=== PATIENT | female | born 1955 | race Caucasian/White ===

== ENCOUNTER 2018-12-21 15:45 | Inpatient (IN) | payer MEDICARE ==
[~2018-12-21] VITALS: Ht 165.1 cm; Wt 81.2 kg
[~2018-12-21 15:45] MED LIST: ACYCLOVIR 400400 MG PO; ALPHA LIPOIC A100 MG PO; B12INJ SUBQ; BIOTIN300 MCG PO; BROMELAIN MC; CALCIUM PO; CARAFATE 1 GM TA1 G1 PO; CIPRO500 MG PO; D3 DOTS2000 UNIT PO; ENZYMATIC DIGE1 EACH PO; EPA DHA PO; ESTER-C 1,0001 EACH PO; ESTRACE1 MG PO; FISH OIL300 MG PO; FLAGYL500 M1 PO; FLUOCINOLO0.01 %/15 TOP; GROWTH HORMONE PO; HYDROCODONE-AP1 EAC6 PO; IMURAN 50MG TAB50 M1 PO; LEVAQUIN 750 M750 MG PO; LEVOTHYROXIN0.025 MG PO; LOPERAMIDE 2 MG2 M1 PO; MAGNES PO; MAGOX 400400 MG PO; MINIVELLE1 EAC1 TD; MIRALAX255 GM PO; MULTIVITAMINS PO; OMEGA-31000 M1 PO; PERCOCET 5-3251 EACH PO; PREMARIN1.25 MG PO; PROBIOTIC1 EAC1 PO; PROBIOTIC1 EACH PO; PULMICORT0.5 MG/22 INH; SAVELLA50 MG PO; TUMS PO; VITAMIN E100 UNI2 PO; ZANAFLEX2 M1 PO; ZOFRAN ODT4 MG PO; [UNRECOGNIZED DRUG - OTHER] PO
[2018-12-21 15:48] VITALS: BP 120/70
[2018-12-21] MEDS ORDERED: SYNTHROID50 MCG PO (15:49)
[2018-12-21 16:08] LABS: HEMATOCRIT 45.8 % (37.0-47.0); HEMOGLOBIN 15.6 gm/dL (12.0-15.0); MCH 32.8 pg (26.0-34.0); MCHC 34.1 g/dL (28.0-37.0); MCV 96.2 fL (80.0-100.0); MPV 8.5 fl. (7.2-11.1); NUCLEATED RBCS 0 /100WBC; PLATELET COUNT* 318 thou/uL (150-400); RBC 4.77 mil/uL (4.20-5.00); RDW-CV 13.1 % (10.5-14.5); WBC 15.3 thou/uL (4.0-11.0)
[2018-12-21 16:13] LABS: CALCIUM 9.5 mg/dL (8.5-10.1); CREATININE 0.9 mg/dL (0.6-1.3)
[2018-12-21 16:18] LABS: ALBUMIN 4.4 g/dL (3.4-5.0); TOTAL BILIRUBIN 0.4 mg/dL (<0.1-1.0); TOTAL PROTEIN 8.1 g/dL (6.4-8.2)
[2018-12-21 16:36] LABS: ABSOLUTE LYMPHOCYTES 1.4 thou/uL (0.8-5.3); ABSOLUTE MONOCYTES 0.3 thou/uL (0.0-1.2); ABSOLUTE NEUTROPHILS 13.6 thou/uL (1.6-8.1)
[2018-12-21 16:37] LABS: PLATELET ESTIMATE ADEQUATE
[2018-12-21 16:38] LABS: CLUMPED PLTS RARE; LARGE PLATELETS RARE
[2018-12-21 20:36] LABS: URINE BILIRUBIN NEGATIVE (Negative); URINE BLOOD TRACE (Negative); URINE CLARITY CLEAR; URINE COLOR YELLOW; URINE GLUCOSE-RANDOM NEGATIVE (Negative); URINE KETONES TRACE (Negative); URINE LEUKOCYTES NEGATIVE (Negative); URINE NITRITE NEGATIVE (Negative); URINE PROTEIN NEGATIVE (Negative); URINE UROBILINOGEN 0.2 E.U./dl (0.2-1.0)
[2018-12-21 23:10] VITALS: BP 111/45
[2018-12-21 23:36] VITALS: BP 105/57
[2018-12-22] MEDS ORDERED: PROBIOTIC1 EAC2 PO (03:48)
[2018-12-22] MEDS ORDERED: [UNRECOGNIZED DRUG - OTHER] PO (03:51)
[2018-12-22] MEDS ORDERED: PANCREATIC ENZYMES PO (03:52)
[2018-12-22] MEDS ORDERED: [UNRECOGNIZED DRUG - OTHER] PO (03:52)
[2018-12-22] MEDS ORDERED: CALCIUM LACTAT100 MG PO (03:54)
[2018-12-22] MEDS ORDERED: VITAMINC500 PO (03:55)
[2018-12-22] MEDS ORDERED: VITAMIN D5000 UNIT PO (03:56)
[2018-12-22] MEDS ORDERED: CO Q-10100 MG PO (03:57)
[2018-12-22] MEDS ORDERED: B-122500 MCG SUBLING (03:58)
[2018-12-22] MEDS ORDERED: ROBAXIN 750 MG750 M1 PO (04:01)
[2018-12-22] MEDS ORDERED: VITAMIN A8000 UNI1 PO (04:02)
[2018-12-22] MEDS ORDERED: MAGNESIUM L-LAC84 MG PO (04:03)
[2018-12-22] MEDS ORDERED: [UNRECOGNIZED DRUG - OTHER] PO (04:05)
[2018-12-22] MEDS ORDERED: ESTRADIOL1 EAC4 TOP (04:05)
[2018-12-22 04:07] LABS: HEMATOCRIT 38.6 % (37.0-47.0); MCH 32.4 pg (26.0-34.0); MCHC 33.7 g/dL (28.0-37.0); MCV 96.1 fL (80.0-100.0); MPV 8.4 fl. (7.2-11.1); RBC 4.02 mil/uL (4.20-5.00); RDW-CV 13.1 % (10.5-14.5); WBC 8.1 thou/uL (4.0-11.0)
[2018-12-22 04:35] LABS: CALCIUM 7.6 mg/dL (8.5-10.1); CREATININE 0.8 mg/dL (0.6-1.3); MAGNESIUM 1.9 mg/dL (1.8-2.4); POTASSIUM 3.8 mmol/L (3.5-5.1); TOTAL BILIRUBIN 0.6 mg/dL (<0.1-1.0); TOTAL PROTEIN 5.8 g/dL (6.4-8.2)
--- NOTE | 2018-12-22 05:08 | NUR ---
REPORT RECIEVED FROM ER. PT ADMITTED TO ROOM 304. PT ORIENTED TO , FALL AGREEMENT GONE OVER AND SIGNED, PT STATED UNDERSTANDING. ADMISSION DOCUMENTED. IV PATENT, MEDS GIVEN PER E-MAR. PAIN MEDS GIVEN PER E-MAR WITH RELIEF. PT STATES THAT SHE HAD A BOWEL OBSTRUCTION IN OCTOBER THIS YEAR AND WAS SEEN AT THE [facility] IN [place], [place] FOR IT AND THEY TREATED HER WITH CIPRO. PT STATES THAT SHE SEENS GI, RETAIL STORE MANAGER, NEUROLOGIST AND OUTFITTER CABIN-ONCOLOGIST ALL AT [place]. PT STATES THAT AT HOME SHE WAS TAKING OXY AND HYCOSAMINE ALONG WITH USING A HEATING PAD AT HOME WITH SOME RELIEF. WILL CONTINUE WITH PLAN OF CARE.
--- NOTE | 2018-12-22 14:31 | NUR ---
PT.SLEEPING. AT BEDSIDE. SPOKE WITH ,ANILA. HE SAID PT.IS INDEPENDENT AT HOME. NO USE OF DME. NO HX OF HOME HEALTH. SHE WAS SEEN AT [facility] IN OCTOBER. ADVISED HIM WE HAVE REQUESTED RECORDS. HE DID NOT FEEL WOULD HAVE ANY DISCHARGE NEEDS.
[2018-12-22 16:19] VITALS: BP 94/50
--- NOTE | 2018-12-22 16:43 | NUR ---
ASSESSMENT COMPLETE. PT ALERT AND ORIENTED X4. PT GIVEN PRN PAIN MEDICATION ONCE DURING THE DAY. IV FLUIDS INFUSING. IV ABX GIVEN SCHEDULED. PT IS UP STANDBY ASSIST. PT IS ON ROOM AIRM, VSS. PT IS RESTING AND HAS NO OTHER CONCERNS AT THIS TIME. SEE ASSESSMENT AND VITALS FOR OTHER DETAILS. CALL LIGHT WITHIN REACH, WILL CONTINUE PLAN OF CARE
[2018-12-22 19:45] VITALS: BP 102/48
[2018-12-23 04:43] LABS: HEMATOCRIT 37.7 % (37.0-47.0); HEMOGLOBIN 12.8 gm/dL (12.0-15.0); MCH 32.8 pg (26.0-34.0); MCHC 33.9 g/dL (28.0-37.0); MCV 96.6 fL (80.0-100.0); MPV 8.3 fl. (7.2-11.1); RBC 3.9 mil/uL (4.20-5.00); RDW-CV 13.2 % (10.5-14.5); WBC 5.5 thou/uL (4.0-11.0)
[2018-12-23 05:12] LABS: CALCIUM 8.3 mg/dL (8.5-10.1); CREATININE 0.9 mg/dL (0.6-1.3); MAGNESIUM 2.1 mg/dL (1.8-2.4); POTASSIUM 3.7 mmol/L (3.5-5.1); TOTAL BILIRUBIN 0.5 mg/dL (<0.1-1.0); TOTAL PROTEIN 5.8 g/dL (6.4-8.2)
--- NOTE | 2018-12-23 05:29 | NUR ---
PT SLEPT MOST OF SHIFT. ASSESSMENT DOCUMENTED. MEDS GIVEN PER E-MAR. IV PATENT, FLUIDS INFUSING. PAIN MEDS GIVEN PER E-MAR WITH RELIEF. PT UP SBA TO BATHROOM. SCD'S WORN MOST OF SHIFT. WILL CONTINUE WITH PLAN OF CARE.
[2018-12-23 07:53] VITALS: BP 102/52
[2018-12-23] MEDS ORDERED: CIPRO500 MG PO (11:11)
[2018-12-23] MEDS ORDERED: BENTYL 10 MG CA10 M1 PO (11:11)
[2018-12-23] MEDS ORDERED: ZOFRAN ODT4 MG DISSOLVE (11:11)
[2018-12-23] MEDS ORDERED: FLAGYL500 M1 PO (11:11)
[2018-12-23 11:40] VITALS: BP 102/52
[2018-12-23 13:39] VITALS: BP 102/52
--- NOTE | 2018-12-23 13:40 | NUR ---
ASSESSMENT COMPLETE. PT DC HOME WITH PRESCRIPTIONS GIVEN. PT VERBALIZES UNDERSTANDING. PT WILL FOLLOW UP WITH GI. PT LEFT WITH , ALL BELONGINGS SENT. SEE ASSESSMENT AND VITALS FOR OTHER DETAILS. CALL LIGHT WITHIN REACH, WILL CONTINUE PLAN OF CARE
--- NOTE | 2018-12-26 12:32 | CON ---
[address] [address] CONSULTATION Name: DOMINGUEZ ALVA Room: [address] M.R.#: [id number] Admission: 12/21/18 Attend Phys: Tiffany White MD Discharge: 12/23/18 Date of : 59 Report #: [id number] THIS REPORT FOR: //name// CC: John White DICTATED BY: Martha Willoughby [facility] DATE OF SERVICE: 12/22/2018 Please note at the time of this dictation, the patient was seen and physically examined by myself. REASON FOR CONSULTATION: Enteritis versus small-bowel obstruction. HISTORY OF PRESENT ILLNESS: This 63-year-old female presented to the Emergency Room with chief complaints of worsening abdominal pain and nausea. She states the pain started the day of admission around 01:00. She states she was having nausea, vomiting and diarrhea over the last several days prior to the onset of the abdominal pain. She reports that her symptoms have gradually improved and she woke up that morning feeling better and then, the pain started about 01:00 p.m. The patient was recently seen at the [facility] at the end of October approximately six weeks ago, underwent labs, EGD and colonoscopy at that time, which we will obtain. She says nothing significant was found. She was treated for SIBO and given Cipro for one week. She states during that time, she felt really well. Also, she follows Dr. Coto who is the chief of the celiac clinic up there and her levels were all within normal range and that she is following and her diet and is very compliant with her multiple food allergies and intolerances. ALLERGIES: INCLUDE PENICILLIN, CEPHALOSPORIN, SULFA, APPLE, LATEX, LACTOSE, GLUTEN, CODEINE, ASPIRIN, MORPHINE, KIWI, BANANA AND AVOCADO. MEDICATIONS: From home include levothyroxine, multivitamin, B12, alpha lipoic acid, growth hormone, bromelain, Biotin, vitamin E, estradiol, omega 3, calcium, magnesium oxide, digestive enzymes, lactobacillus, Carafate and pain medicine p.r.n. PAST MEDICAL HISTORY: Significant for celiac disease, hypothyroid, hypoglycemia, low blood pressure. PAST SURGICAL HISTORY: Negative. FAMILY HISTORY: Negative for [place] [address] CONSULTATION Name: DOMINGUEZ ALVA Room: [address]#: [id number] Admission: 12/21/18 Attend Phys: Tiffany White MD Discharge: 12/23/18 Date of : 59 Report #: [id number] SOCIAL HISTORY: Alcohol on special occasions. Denies any tobacco or illegal drug use. REVIEW OF SYSTEMS: Twelve-point review of systems is essentially negative except what is mentioned in the HPI. PHYSICAL EXAMINATION: VITAL SIGNS: Temperature 36.9, pulse 76, respirations 16, blood pressure 105/57. HEART: Regular rate and rhythm. LUNGS: Clear. ABDOMEN: Soft, positive bowel sounds in all four quadrants with epigastric tenderness noted to palpation, but also some generalized throughout, but worsening in the epigastric area. LABORATORY DATA: Hemoglobin is 13; white count on admission was 15.6, she is down to 8.1; platelets 285. GFR is 73. TSH is 8.7, total bilirubin 0.6. Alkaline phosphatase was 135, down to 83. ALT was 115, down to 74 and AST was 98, down to 36. CT of the abdomen and pelvis showed fluid throughout the small bowel with increased enhancement in the small bowel fisher without any obvious wall thickening or perienteric fat stranding, fluid noted within the colon, likely representing some mild enteritis, previous hysterectomy, cholecystectomy, prominent right external iliac lymph enlarged since the last exam. IMPRESSION: 1. Abdominal pain. 2. Loose stools. 3. Nausea and vomiting, resolved. 4. Leukocytosis, resolved. 5. History of recurrent small bowel bacterial overgrowth. 6. History of celiac disease followed at the [facility]. PLAN: 1. We will obtain her records from [facility] for our review with her recent visit EGD, colon, labs and progress notes. 2. We will add Bentyl 10 mg 1-2 tablets a.c. and at bedtime. 3. We will consider treatment for reoccurring SIBO after records have been reviewed. Thank you for allowing us to participate in this patient's care. Please do not hesitate to call with any questions in regard to this consult. <ELECTRONICALLY SIGNED> By: John Olivares DO 12/26/18 1232 [id number] Olivares DO /nt
== END 2018-12-23 13:10 | disposition home or self-care (01) | DRG 373 ==
LOC: M.ERS 15:45 → M.3W 17:21 → M.TBA-ER 17:21 → M.3W 23:22
PROVIDERS: Nurse Practitioner Family; ADMIT Internal Medicine
DX: A04.9 Bacterial intestinal infection, unspecified (principal); K90.0 Celiac disease; E03.9 Hypothyroidism, unspecified; D72.829 Elevated white blood cell count, unspecified; E04.1 Nontoxic single thyroid nodule; Z88.0 Allergy status to penicillin; Z88.2 Allergy status to sulfonamides; Z88.8 Allergy status to other drugs, medicaments and biological substances; Z88.6 Allergy status to analgesic agent; Z91.02 Food additives allergy status; Z91.040 Latex allergy status; Z91.011 Allergy to milk products; Z79.899 Other long term (current) drug therapy

== ENCOUNTER 2019-01-09 15:41 | Emergency (ER) | payer MEDICARE ==
[~2019-01-09] VITALS: Ht 165.1 cm; Wt 77.1 kg
[~2019-01-09 15:41] MED LIST changes: +B-122500 MCG SUBLING; +BENTYL 10 MG CA10 M1 PO; +CALCIUM LACTAT100 MG PO; +CO Q-10100 MG PO; +ESTRADIOL1 EAC4 TOP; +MAGNESIUM L-LAC84 MG PO; +PANCREATIC ENZYMES PO; +PROBIOTIC1 EAC2 PO; +ROBAXIN 750 MG750 M1 PO; +SYNTHROID50 MCG PO; +VITAMIN A8000 UNI1 PO; +VITAMIN D5000 UNIT PO; +VITAMINC500 PO; +ZOFRAN ODT4 MG DISSOLVE; +[UNRECOGNIZED DRUG - OTHER] PO; +[UNRECOGNIZED DRUG - OTHER] PO; +[UNRECOGNIZED DRUG - OTHER] PO
[2019-01-09 16:39] LABS: HEMATOCRIT 42.8 % (37.0-47.0); HEMOGLOBIN 14.4 gm/dL (12.0-15.0); MCH 32.4 pg (26.0-34.0); MCHC 33.7 g/dL (28.0-37.0); MCV 96.2 fL (80.0-100.0); MPV 8.4 fl. (7.2-11.1); NUCLEATED RBCS 0 /100WBC; PLATELET COUNT* 268 thou/uL (150-400); RBC 4.45 mil/uL (4.20-5.00); RDW-CV 13.1 % (10.5-14.5); WBC 6.5 thou/uL (4.0-11.0)
[2019-01-09 16:43] LABS: ANION GAP 10 mmol/L (7-16); BUN 15 mg/dL (7-18); CALCIUM 8.3 mg/dL (8.5-10.1); CHLORIDE 103 mmol/L (98-107); CO2 23 mmol/L (21-32); CREATININE 0.7 mg/dL (0.6-1.3); GLUCOSE 105 mg/dL (70-99); POTASSIUM 3.8 mmol/L (3.5-5.1); SODIUM 136 mmol/L (136-145)
[2019-01-09 16:53] LABS: ALBUMIN 3.4 g/dL (3.4-5.0); ALKALINE PHOSPHATASE 96 U/L (46-116); LIPASE 81 U/L (73-393); SGOT 108 U/L (15-37); SGPT 98 U/L (30-65); TOTAL BILIRUBIN 0.7 mg/dL (<0.1-1.0); TOTAL PROTEIN 6.6 g/dL (6.4-8.2); TROPONIN-I LEVEL <0.06 ng/mL (<0.06)
[2019-01-09 17:13] LABS: ABSOLUTE LYMPHOCYTES 0.7 thou/uL (0.8-5.3); ABSOLUTE MONOCYTES 0.2 thou/uL (0.0-1.2); ABSOLUTE NEUTROPHILS 5.7 thou/uL (1.6-8.1); PLATELET ESTIMATE ADEQUATE
[2019-01-09 17:20] LABS: URINE BILIRUBIN NEGATIVE (Negative); URINE BLOOD TRACE (Negative); URINE CLARITY CLEAR; URINE COLOR YELLOW; URINE GLUCOSE-RANDOM NEGATIVE (Negative); URINE KETONES NEGATIVE (Negative); URINE LEUKOCYTES-REFLEX NEGATIVE (Negative); URINE NITRITE-REFLEX NEGATIVE (Negative); URINE PROTEIN NEGATIVE (Negative); URINE UROBILINOGEN 0.2 E.U./dl (0.2-1.0)
[2019-01-09] MEDS ORDERED: PHENERGAN 25 MG25 M1 PO (18:57)
[2019-01-09] MEDS ORDERED: PROMS25 WY RECTAL (18:57)
[2019-01-09 19:29] VITALS: BP 121/82
--- NOTE | 2019-01-11 13:30 | EKG ---
[place] [address] ELECTROCARDIOGRAM REPORT Name: DOMINGUEZ ALVA [facility] [id number] Admission: 01/09/19 Attend Phys: Discharge: 01/09/19 Date of : 59 Report #: [id number] THIS REPORT FOR: //name// [facility] ED Test Date: 2019-01-09 Test Time: 16:17:00 Pat Name: DOMINGUEZ ALVA Department: Room: Gender: F Master Automotive Technician: Thomas SAXENA : 1955 Requested By: Rufina Redmond Order Number: [id number] MD: Tor Mathews Measurements Intervals [place] Rate: 70 P: 52 SD: 146 QRS: 24 QRSD: 92 T: 54 QT: 387 QTc: 418 Interpretive Statements Sinus rhythm Low voltage, extremity leads Compared to ECG 01/02/2017 12:10:37 No significant changes Electronically Signed On 01-11-2019 13:29:51 CDT by Tor Mathews [email or web address] <ELECTRONICALLY SIGNED> By: Tor Mathews MD, [facility] 01/11/19 1329 1617 1617 Tor Mathews MD, [facility] /EPI
== END 2019-01-09 19:20 | disposition home or self-care (01) ==
LOC: M.ERS 15:41
PROVIDERS: Nurse Practitioner Family
DX: K52.9 Noninfective gastroenteritis and colitis, unspecified (principal); E03.9 Hypothyroidism, unspecified; Z90.49 Acquired absence of other specified parts of digestive tract; Z90.710 Acquired absence of both cervix and uterus; Z88.2 Allergy status to sulfonamides; Z88.0 Allergy status to penicillin; Z88.5 Allergy status to narcotic agent; Z88.8 Allergy status to other drugs, medicaments and biological substances; Z91.011 Allergy to milk products; Z91.02 Food additives allergy status